=== PATIENT | male | born 1985 | race Caucasian/White ===

== ENCOUNTER 2016-11-22 07:01 | Emergency (ER) | payer SELFPAY ==
[~2016-11-22] VITALS: Ht 182.9 cm; Wt 90.7 kg
[2016-11-22] MEDS ORDERED: HYDR-971 PO (07:48)
[2016-11-22] MEDS ORDERED: CLIN-44 PO (07:48)
--- NOTE | 2016-11-22 07:48 | PHYS DOC ---
Past Medical History Past Medical History: No Pertinent History Past Surgical History: No Surgical History Smoking: Cigarettes Alcohol Use: Occasionally Drug Use: None Adult General Chief Complaint Chief Complaint: DENTAL PROBLEM [facility] HPI Patient is a 31 year old male presents to the emergency department with a 2 day history of left lower ankle pain. He denies any fever, chills or any nausea or vomiting he does have swelling noted on the outer cheek area. Patient states he does not have a dentist. He denies any foul taste. Patient states she is allergic to amoxicillin and penicillin. Patient states he has taken 2 ibuprofen without relief. He is also taken one of his mother's hydrocodone with minimal relief. Patient does have a history of smoking. Patient denies, headache, chest pain or SOA. Review of Systems Review of Systems Constitutional: Denies fever or chills [] Eyes: Denies change in visual acuity, redness, or eye pain [] HENT: Denies nasal congestion or sore throat. c/o left lower dental pain Respiratory: Denies cough or shortness of breath [] Cardiovascular: No additional information not addressed in HPI [] GI: Denies abdominal pain, nausea, vomiting, bloody stools or diarrhea [] : Denies dysuria or hematuria [] Musculoskeletal: Denies back pain or joint pain [] Integument: Denies rash or skin lesions [] Neurologic: Denies headache, focal weakness or sensory changes [] Allergies Allergies Allergies Coded Allergies Type Severity Reaction Last Updated Verified Amoxicillin Allergy Unknown 04/09/14 No Penicillins Allergy Unknown 04/09/14 No Physical Exam Physical Exam Constitutional: Well developed, well nourished, no acute distress, non-toxic appearance. [] HENT: Normocephalic, atraumatic, bilateral external ears normal, oropharynx moist, no oral exudates, nose normal. Bilateral tympanic membranes appear to be normal, patient was noted to have swelling and tenderness around #21-[address] Preston. Patient also has swelling along the gum line and into the cheek area. Eyes: PERRLA, EOMI, conjunctiva normal, no discharge. [] Neck: Normal range of motion, no tenderness, supple, no stridor. [] Cardiovascular:Heart rate regular rhythm, no murmur [] Lungs & Thorax: Bilateral breath sounds clear to auscultation [] Skin: Warm, dry, no erythema, no rash. [] Back: No tenderness Extremities: No tenderness, no cyanosis, no clubbing, ROM intact, no edema. [] Neurologic: Alert and oriented X 3, normal motor function, normal sensory function, no focal deficits noted. [] Psychologic: Affect normal, judgement normal, mood normal. [] Current Patient Data Vital Signs Vital Signs Date Time Temp Pulse Resp B/P Pulse Ox O2 Delivery O2 Flow Rate FiO2 11/22/16 07:29 98.4 68 16 97 Room Air 98.4 EKG EKG [] Radiology/Procedures Radiology/Procedures [] Course & Med Decision Making Course & Med Decision Making Pertinent Labs and Imaging studies reviewed. (See chart for details) Patient will be provided with clindamycin she'll also be provided with hydrocodone for severe pain and discomfort. Patient was recommended to take ibuprofen 800 mg every 8 hours with food stop taking few develop upset stomach. Also recommended patient to follow up with a dentist in the next 7-10 days. Patient agrees with discharge instructions treatment regimens and follow-up recommendations. Signs and symptoms to return back to emergency department as been provided. Since blood pressure was elevated here in the emergency department. Recommended patient to follow up with primary care physician in regards to blood pressure, also recommended monitoring her blood pressure and follow-up in 5-7 days. BP at discharge 157/97 [] Dragon Disclaimer Dragon Disclaimer This electronic medical record was generated, in whole or in part, using a voice recognition dictation system. Departure Departure Impression: Primary Impression: Pain, dental Disposition: 01 HOME, SELF-CARE Condition: STABLE Referrals: NO PCP (PCP) Patient Instructions: Dental Abscess, Dental Pain, [id number] Additional Instructions: Activity as tolerated. Medication as prescribed. Hydrocodone will cause drowsiness do not take if you need to be alert and oriented. Continue take ibuprofen 800 mg every 8 hours with food. Stop taking if he developed upset stomach. Monitor your blood pressure and followup with primary care provider in 5-7 days Followup with dentist in 7-10 days Return to emergency department as needed for signs and symptoms that become worse. Scripts Hydrocodone/Apap 5-325 ([place] 5-325 Tablet)1 Each Tablet1 Tab PO PRN Q6HRS PRN PAIN #10 TAB Ref 0 Prov:MARIBELL AVALOS STEM ASSEMBLER 11/22/16 Clindamycin Hcl 150 Mg Capsule3 Cap PO QID 10 Days Prov:MARIBELL AVALOS NP 11/22/16 MARIBELL AVALOS NP Nov 22, 2016 07:48
[2016-11-22 07:53] VITALS: BP 157/97
== END 2016-11-22 07:54 | disposition home or self-care (01) ==
LOC: ER 07:01
DX: K08.89 Other specified disorders of teeth and supporting structures (principal); Z88.0 Allergy status to penicillin; Z88.1 Allergy status to other antibiotic agents; Z87.891 Personal history of nicotine dependence
CPT/HCPCS: 99283

== ENCOUNTER 2016-11-26 16:23 | Emergency (ER) | payer SELFPAY ==
[~2016-11-26] VITALS: Ht 182.9 cm; Wt 90.7 kg
[~2016-11-26 16:23] MED LIST: CLIN-44 PO; HYDR-971 PO
[2016-11-26 16:36] VITALS: BP 143/91
[2016-11-26] MEDS ORDERED: ONDANSETRON ODT 4 MG TAB.RAPDIS PO ONE (16:45)
[2016-11-26] MEDS ORDERED: SULF1TAB24 PO (17:03)
[2016-11-26] MEDS ORDERED: PROM25TA10 PO (17:03)
--- NOTE | 2016-11-26 17:03 | PHYS DOC ---
Past Medical History Past Medical History: No Pertinent History Past Surgical History: No Surgical History Smoking: Less than 1pk/day Alcohol Use: Occasionally Drug Use: Marijuana Adult General Chief Complaint Chief Complaint: NAUSEA/VOMITING/DIARRHA HPI HPI Patient is a 31 year old male who presents with nausea, vomiting, and diarrhea after taking clindamycin and [place] for a dental abscess. The patient was seen here on 11/22/16 and prescribed the medications. He states that the abscess has improved. He stopped taking the medications 3 days ago due to the side effects they were causing. He denies fever or abdominal pain. He does not have a PCP. Review of Systems Review of Systems Constitutional: Denies fever. [] Eyes: Denies change in visual acuity, redness, or eye pain. [] HENT: Denies ear pain, nasal congestion or sore throat. Reports improving dental abscess. Respiratory: Denies cough or shortness of breath. [] Cardiovascular: Denies chest pain, palpitations or edema. [] GI: Denies abdominal pain, bloody stools. Reports nausea, vomiting, and diarrhea. : Denies dysuria, hematuria or urinary frequency. [] Musculoskeletal: Denies back pain or joint pain. [] Integument: Denies rash or skin lesions. [] Neurologic: Denies headache, focal weakness or sensory changes. [] Endocrine: Denies polyuria or polydipsia. [] Psych: Denies anxiety or depression. [] All systems reviewed and negative unless otherwise stated in the HPI. Current Medications Current Medications Current Medications Medications (Trade) Dose Ordered Sig/Ema Start Time Stop Time Status Last Admin Dose Admin Ondansetron HCl (Zofran Odt) 4 mg 1X ONCE 11/26/16 16:45 11/26/16 16:46 DC 11/26/16 16:45 4 MG Allergies Allergies Allergies Coded Allergies Type Severity Reaction Last Updated Verified Penicillins Allergy Unknown 04/09/14 No amoxicillin Allergy Unknown 04/09/14 No Physical Exam Physical Exam Constitutional: Well developed, well nourished, no acute distress, non-toxic appearance. [] HENT: Normocephalic, atraumatic, bilateral external ears normal, oropharynx moist, no oral exudates, nose normal. Bilateral TMs without erythema or bulging. There is no posterior pharyngeal erythema or tonsillar edema. Tooth # 20 is decayed and tender to palpation without dental abscess. Eyes: PERRLA, EOMI, conjunctiva normal, no discharge. [] Neck: Normal range of motion, no tenderness, supple, no stridor. [] Cardiovascular: Heart rate regular rhythm, no murmur [] Lungs & Thorax: Bilateral breath sounds clear to auscultation without wheezes, rales, or rhonchi. Abdomen: Bowel sounds normal, soft, no tenderness, no masses, no pulsatile masses. [] Skin: Warm, dry, no erythema, no rash. [] Neurologic: Alert and oriented X 3, normal motor function, normal sensory function, no focal deficits noted. [] Psychologic: Affect normal, judgement normal, mood normal. [] Current Patient Data Vital Signs Vital Signs Date Time Temp Pulse Resp B/P Pulse Ox O2 Delivery O2 Flow Rate FiO2 11/26/16 16:36 98.6 77 18 98 Room Air 98.6 EKG EKG [] Radiology/Procedures Radiology/Procedures [] Course & Med Decision Making Course & Med Decision Making Pertinent Labs and Imaging studies reviewed. (See chart for details) Patient presents with nausea and vomiting, and diarrhea after taking [place] clindamycin for dental abscess. These are known side effects to these medications. The abscess has improved but has not completely resolved. The patient is allergic to penicillins. He is given prescription for Bactrim and Phenergan. He is instructed to follow-up with a dentist. Return precautions were discussed. He verbalizes understanding and agrees with plan. Dragon Disclaimer Dragon Disclaimer This electronic medical record was generated, in whole or in part, using a voice recognition dictation system. Departure Departure Impression: Primary Impression: Adverse drug reaction Disposition: 01 HOME, SELF-CARE Condition: STABLE Referrals: NO PCP (PCP) Patient Instructions: Drug Reaction, GI Intolerance Additional Instructions: You were seen for an adverse reaction to a medication. This is not an allergy to the medication. Please discontinue use of the clindamycin previously prescribed. Please begin taking the Bactrim as soon as possible. Complete all of the prescribed pills. Please take the promethazine as needed for nausea and vomiting. Please follow up with a dentist as soon as possible regarding your tooth problem. Return to the emergency department if you have continued vomiting, blood in your stools, abdominal pain, fever, or other new or concerning symptoms. Scripts Promethazine Hcl 25 Mg Tablet1 Tab PO PRN Q6HRS PRN NAUSEA/VOMITING #20 TAB Prov:ERIC MATA 11/26/16 Sulfamethoxazole/Trimethoprim (Bactrim Ds Tablet)1 Each Tablet1 Tab PO BID #14 TAB Prov:ERIC MATA 11/26/16 Problem Qualifiers Primary Impression: Adverse drug reaction Encounter type: initial encounter Qualified Code: T88.7XXA - Unspecified adverse effect of drug or medicament, initial encounter ERIC MATA Nov 26, 2016 17:03
== END 2016-11-26 17:09 | disposition home or self-care (01) ==
LOC: ER 16:23
DX: R11.2 Nausea with vomiting, unspecified (principal); T36.8X5A Adverse effect of other systemic antibiotics, initial encounter; T40.2X5A Adverse effect of other opioids, initial encounter; F17.210 Nicotine dependence, cigarettes, uncomplicated; F12.10 Cannabis abuse, uncomplicated; Z88.0 Allergy status to penicillin; Z88.1 Allergy status to other antibiotic agents; Y92.89 Other specified places as the place of occurrence of the external cause
CPT/HCPCS: 99283; Q0162

== ENCOUNTER 2018-01-01 20:59 | Emergency (ER) | payer OTHER | END 2018-01-01 21:40 | disposition home or self-care (01) | LOC: ER 21:40 | DX: S61.233A Puncture wound without foreign body of left middle finger without damage to nail, initial encounter (principal); L08.9 Local infection of the skin and subcutaneous tissue, unspecified; F12.10 Cannabis abuse, uncomplicated; Z88.0 Allergy status to penicillin; Z88.1 Allergy status to other antibiotic agents; W45.8XXA Other foreign body or object entering through skin, initial encounter; Y93.89 Activity, other specified; Y99.8 Other external cause status; Y92.89 Other specified places as the place of occurrence of the external cause | CPT/HCPCS: 99283 ==

== ENCOUNTER 2019-12-09 08:52 | Emergency (ER) | payer OTHER ==
[~2019-12-09] VITALS: Ht 182.9 cm; Wt 100.0 kg
[~2019-12-09 08:52] MED LIST changes: -CLIN-44 PO; +CLIN150C14 PO; +HYDR-3164 PO; -HYDR-971 PO; +PROM25TA10 PO; +SULF1TAB24 PO
[2019-12-09 09:09] VITALS: BP 144/93
[2019-12-09] MEDS ORDERED: predniSONE 10 MG TABLET PO ONE (10:00)
[2019-12-09] MEDS ORDERED: AMOXICILLIN 250 MG CAPSULE. PO ONE (10:00)
--- NOTE | 2019-12-09 10:00 | PHYS DOC ---
Past Medical History Past Medical History: No Pertinent History Past Surgical History: No Surgical History Additional Information: 1 PPD Alcohol Use: Occasionally Drug Use: Marijuana Adult General Chief Complaint Chief Complaint: SORE THROAT HPI HPI Patient is a 34 year old medical presents with sore throat for the last 3 days. Patient states the pain is radiating to the right ear. Denies any fever coughing or congestion. He rates the right ear pain as mild and intermittent, no exacerbating or relieving factors. Review of Systems Review of Systems Constitutional: Denies fever or chills [] Eyes: Denies change in visual acuity, redness, or eye pain [] HENT: Reports sore throat with pain radiating to the right ear. Denies nasal congestion Respiratory: Denies cough or shortness of breath [] Cardiovascular: No additional information not addressed in HPI [] GI: Denies abdominal pain, nausea, vomiting, bloody stools or diarrhea [] : Denies dysuria or hematuria [] Musculoskeletal: Denies back pain or joint pain [] Integument: Denies rash or skin lesions [] Neurologic: Denies headache, focal weakness or sensory changes [] Endocrine: Denies polyuria or polydipsia [] All other systems were reviewed and found to be within normal limits, except as documented in this note. Current Medications Current Medications Current Medications Medications (Trade) Dose Ordered Sig/[facility] Start Time Stop Time Status Last Admin Dose Admin Amoxicillin (Amoxil) 500 mg 1X ONCE 12/09/19 10:00 12/09/19 10:01 Prednisone (Prednisone) 50 mg 1X ONCE 12/09/19 10:00 12/09/19 10:01 Allergies Allergies Allergies Coded Allergies Type Severity Reaction Last Updated Verified Penicillins Allergy Unknown 04/09/14 No amoxicillin Allergy Unknown 04/09/14 No Physical Exam Physical Exam Constitutional: Well developed, well nourished, no acute distress, non-toxic appearance. [] HENT: Normocephalic, atraumatic, bilateral external ears normal, oropharynx moist, no oral exudates, nose normal. [] Midline uvula, posterior pharynx with mild erythema, +2 right tonsil, +1 right tonsil +2 right anterior cervical adenopathy. Eyes: PERRLA, EOMI, conjunctiva normal, no discharge. [] Neck: Normal range of motion, no tenderness, supple, no stridor. [] Cardiovascular:Heart rate regular rhythm, no murmur [] Lungs & Thorax: Bilateral breath sounds clear to auscultation [] Abdomen: Bowel sounds normal, soft, no tenderness, no masses, no pulsatile masses. [] Skin: Warm, dry, no erythema, no rash. [] Back: No tenderness, no CVA tenderness. [] Extremities: No tenderness, no cyanosis, no clubbing, ROM intact, no edema. [] Neurologic: Alert and oriented X 3, normal motor function, normal sensory function, no focal deficits noted. [] Psychologic: Affect normal, judgement normal, mood normal. [] Current Patient Data Vital Signs Vital Signs Date Time Temp Pulse Resp B/P (MAP) Pulse Ox O2 Delivery O2 Flow Rate FiO2 12/09/19 09:09 97.9 63 17 144/93 (110) 99 Room Air 97.9 EKG EKG [] Radiology/Procedures Radiology/Procedures [] Course & Med Decision Making Course & Med Decision Making Pertinent Labs and Imaging studies reviewed. (See chart for details) This is a 34-year-old male patient presenting to the ED today with sore throat for 3 days. Positive rapid strep. Discharged with amoxicillin and prednisone. First dose in the ED. Follow-up with primary care doctor in 1-2 weeks. Dragon Disclaimer Dragon Disclaimer This electronic medical record was generated, in whole or in part, using a voice recognition dictation system. Departure Departure Impression: Primary Impression: Acute streptococcal pharyngitis Disposition: HOME, SELF-CARE Condition: STABLE Referrals: NO PCP (PCP) RAFITA CAMPO MD Follow-up in 1-2 weeks Patient Instructions: Strep Throat Additional Instructions: You have acute strep infection. We put you on antibiotics, ensure you complete them. You can take Tylenol/Motrin for pain or fever. Use saltwater gargles for sore throat. Follow-up with your own doctor the provided in one week. Come back to the ED at any point symptoms worsen. Scripts Amoxicillin (AMOXICILLIN) 500 Mg Tablet 1 TAB PO BID, #20 TAB Prov: MUTDELANEYASALVATORE DIETITIAN 12/09/19 Prednisone (PREDNISONE) 50 Mg Tablet 1 TAB PO DAILY, #4 TAB Prov: MUTUNGASALVATORE DIETITIAN 12/09/19 GIAUNGSALVATORE James DIETITIAN Dec 09, 2019 10:00
[2019-12-09] MEDS ORDERED: AMOX500T PO (10:03)
[2019-12-09] MEDS ORDERED: PRED50TA PO (10:03)
== END 2019-12-09 10:28 | disposition home or self-care (01) ==
LOC: ER 08:52
DX: J02.0 Streptococcal pharyngitis (principal); B95.0 Streptococcus, group A, as the cause of diseases classified elsewhere; H92.01 Otalgia, right ear; F17.200 Nicotine dependence, unspecified, uncomplicated
CPT/HCPCS: 87880; 99283; J7512

== ENCOUNTER 2021-01-05 17:12 | Emergency (ER) | payer OTHER ==
[~2021-01-05] VITALS: Ht 182.9 cm; Wt 95.0 kg
[~2021-01-05 17:12] MED LIST changes: +AMOX500T PO; -CLIN150C14 PO; +CLIN150C15 PO; +PRED50TA PO
[2021-01-05 17:32] VITALS: BP 141/78
[2021-01-05] MEDS ORDERED: DOXYCYCLINE HYCLATE 100 MG TABLET PO ONE (17:45)
[2021-01-05] MEDS ORDERED: NEOMY/BACITR/POLYMYXIN OINT PACKET. TP ONE (17:45)
--- NOTE | 2021-01-05 18:14 | RAD ---
Left hand 3 views 01/05/2021. Reason for exam: Laceration There is evidence of previous amputation at the distal end of the thumb. No acute fracture or disloca tion is seen. There is no apparent foreign body. IMPRESSION: No acute abnormality. Left wrist 3 views: No fracture or dislocation is seen. Joint spaces are well maintained. There is no apparent foreign body. IMPRESSION: No apparent acute abnormality. Electronically signed by: Avelino Mayers Jr., MD (01/05/2021 6:12 PM) [id number]
--- NOTE | 2021-01-05 18:20 | ED.ADGEN ---
Past Medical History Past Medical History: Unknown Additional Past Medical Histor: LEFT BROKEN WRIST, SEMI LEFT THUMB AMPUTATION. Past Surgical History: No Surgical History Smoking Status: Current Every Day Smoker Alcohol Use: Occasionally Drug Use: Marijuana General Adult EDM: Chief Complaint: LACERATION/AVULSION HPI: HPI: Patient is a 35 year old male who presents to the emergency department with complaints of swelling, pain, abrasions, and a laceration to his left thumb after breaking up a fight between two dogs. He reports that his dogs color got stuck on a piece of barbed wire and that he believes his injuries were caused by the damaris wire on the fence. He denies being bitten by the dog. Patient reports his last tetanus shot was less than 5 years ago. He denies any decreased sensation, numbness, or tingling of the affected area. He reports that he has pain at the base of his left thumb that radiates to his left forearm that is constant and sharp. He currently rates pain a 10 out of 10 on the pain scale, he denies any alleviating factors, pain is worse with movement. He denies any decreased range of motion of his left thumb or wrist. Review of Systems: Review of Systems: Complete ROS is negative unless otherwise noted in HPI. Current Medications: Current Medications Medications (Trade) Dose Ordered Sig/Ema Start Time Stop Time Status Last Admin Dose Admin Acetaminophen/ Hydrocodone Bitart (Lortab 7.5/325) 1 tab 1X ONCE 01/05/21 18:30 01/05/21 18:31 DC 01/05/21 18:56 1 TAB Doxycycline Hyclate (Vibra-Tab) 100 mg 1X ONCE 01/05/21 17:45 01/05/21 17:46 DC 01/05/21 17:44 100 MG Lidocaine HCl (Xylocaine-Mpf 1% 2ml Vial) 6 ml 1X ONCE 01/05/21 19:00 01/05/21 19:01 DC 01/05/21 18:57 6 ML Neomycin/ Polymyxin/ Bacitracin (Triple Antibiotic Ointment) 1 pkt 1X ONCE 01/05/21 17:45 01/05/21 17:46 DC 01/05/21 17:44 1 PKT Allergies: Allergies: Allergies Coded Allergies Type Severity Reaction Last Updated Verified Penicillins Allergy Unknown 04/09/14 No amoxicillin Allergy Unknown 04/09/14 No Physical Exam: PE: See Above Constitutional: Well developed, well nourished, no acute distress, non-toxic appearance. [] HENT: Normocephalic, atraumatic, bilateral external ears normal, nose normal. [] Eyes: PERRLA, EOMI, conjunctiva normal, no discharge. [] Neck: Normal range of motion, no stridor. [] Cardiovascular:Heart rate regular rhythm Lungs & Thorax: Respirations even and unlabored, no retractions, no respiratory distress Skin: Warm, dry, no erythema; puncture wound/animal bite noted between the first and second digits of the left hand, no visible foreign body, there are multiple scratches/abrasions to the left thumb, no bleeding, no visible foreign body Extremities: Left thumb: Prior distal amputation of the left thumb , cap refill less than 2 seconds, 1+ edema, full extension and flexion, no crepitus or obvious deformity, diffuse bony tenderness to palpation [] Left wrist: 2+ radial and and 2+ ulnar pulses, cap refill less than 2 seconds, full range of motion, diffuse tenderness to palpation, no crepitus, no obvious deformity, no edema Neurologic: Alert and oriented X 3, normal motor, normal sensory, no focal deficits noted. [] Psychologic: Affect normal, judgement normal, mood normal. [] Current Patient Data: Vital Signs: Vital Signs Date Time Temp Pulse Resp B/P (MAP) Pulse Ox O2 Delivery O2 Flow Rate FiO2 01/05/21 17:32 97.8 79 12 141/78 (99) 99 97.8 EKG: EKG: [] Heart Score: Risk Factors: Risk Factors: DM, Current or recent (<one month) smoker, HTN, HLP, family history of CAD, obesity. Risk Scores: Score 0 - 3: 2.5% MACE over next 6 weeks - Discharge Home Score 4 - 6: 20.3% MACE over next 6 weeks - Admit for Clinical Observation Score 7 - 10: 72.7% MACE over next 6 weeks - Early Invasive Strategies Radiology/Procedures: Radiology/Procedures: PROCEDURE: WRIST 3V LEFT Left hand 3 views 01/05/2021. Reason for exam: Laceration There is evidence of previous amputation at the distal end of the thumb. No acute fracture or dislocation is seen. There is no apparent foreign body. IMPRESSION: No acute abnormality. Left wrist 3 views: No fracture or dislocation is seen. Joint spaces are well maintained. There is no apparent foreign body. IMPRESSION: No apparent acute abnormality. Electronically signed by: Avelino Mayers Jr., MD (01/05/2021 6:12 PM) [id number] [] Course & Med Decision Making: Course & Med Decision Making Pertinent Labs and Imaging studies reviewed. (See chart for details) [] Dragon Disclaimer: Dragon Disclaimer: This electronic medical record was generated, in whole or in part, using a voice recognition dictation system. Departure Departure Impression: Primary Impression: Contusion of left thumb Additional Impressions: Dog bite of thumb Abrasion of thumb, left Left thumb sprain Disposition: 01 DC HOME SELF CARE/HOMELESS Condition: STABLE Referrals: GEORGIE GRANT MD Patient Instructions: Animal Bite, [id number], Contusion, [id number], Thumb Sprain Additional Instructions: Fill the prescriptions and use as directed. You may also take Ibuprofen as needed for pain. Follow up with your primary care doctor or Dr. Grant for recheck this week. Return to the ER if symptoms worsen or fever develops. Scripts Hydrocodone Bit/Acetaminophen (HYDROCODONE-APAP 5-325 ) 1 Tab Tablet 1 TAB PO PRN Q6HRS PRN for PAIN for 3 Days, #10 TAB 0 Refills Prov: JUSTINE SELLERS APRN 01/05/21 Doxycycline Hyclate (DOXYCYCLINE HYCLATE) 100 Mg Tablet 1 TAB PO BID for 7 Days, #14 TAB 0 Refills Prov: JUSTINE SELLERS APRN 01/05/21 Problem Qualifiers Primary Impression: Contusion of left thumb Encounter type: initial encounter Damage to nail status: without damage Qualified Codes: S60.012A - Contusion of left thumb without damage to nail, initial encounter Additional Impressions: Dog bite of thumb Encounter type: initial encounter Laterality: left Qualified Codes: S61.052A - Open bite of left thumb without damage to nail, initial encounter; W54.0XXA - Bitten by dog, initial encounter Abrasion of thumb, left Encounter type: initial encounter Qualified Codes: S60.312A - Abrasion of left thumb, initial encounter Left thumb sprain Encounter type: initial encounter Sprain of finger site: unspecified site Qualified Codes: S63.602A - Unspecified sprain of left thumb, initial encounter JUSTINE SELLERS APRN Jan 05, 2021 18:20
[2021-01-05] MEDS ORDERED: HYDROcodone/APAP 7.5/325MG 1 TAB TABLET PO ONE (18:30)
[2021-01-05] MEDS ORDERED: LIDOCAINE 1% PF 2 ML VIAL. INJ ONE (19:00)
[2021-01-05] MEDS ORDERED: DOXY100T PO (19:16)
[2021-01-05] MEDS ORDERED: HYDR-2761 PO (19:16)
== END 2021-01-05 19:30 | disposition home or self-care (01) ==
LOC: ER 17:12
DX: S63.602A Unspecified sprain of left thumb, initial encounter (principal); S61.052A Open bite of left thumb without damage to nail, initial encounter; F17.200 Nicotine dependence, unspecified, uncomplicated; Z88.0 Allergy status to penicillin; Z88.1 Allergy status to other antibiotic agents; W54.0XXA Bitten by dog, initial encounter; Y93.89 Activity, other specified; Y92.89 Other specified places as the place of occurrence of the external cause; Y99.8 Other external cause status
CPT/HCPCS: 73110; 73130; 99284; J3490